=== PATIENT | male | born 1975 | race Caucasian/White ===

== ENCOUNTER → 2016-11-13 | Outpatient (CLI) | payer OTHER ==
--- NOTE | 2016-11-13 09:58 | RADRPT ---
EXAM DATE/TIME: 11/13/2016 09:33 [place] COMPARISON: No previous studies available for comparison. INDICATIONS : Right hip pain with no known injury. MEDICAL HISTORY : None. SURGICAL HISTORY : None. ENCOUNTER: Initial ACUITY: 4 - 6 months PAIN SCORE: 10/10 LOCATION: Right lateral hip. FINDINGS: A two view examination of the right hip was performed. The primary and secondary trabecular pattern of the femoral neck is intact. The hip joint is of normal width without significant sclerosis or bon y hypertrophy. The acetabulum is grossly intact. CONCLUSION: Unremarkable examination of the right hip. Thom Awan MD on November 13, 2016 at 9:56 Board Certified Radiologist. This report was verified electronically.
== END ==
LOC: HRAD 09:15
DX: M25.551 Pain in right hip (principal)
CPT/HCPCS: 73502

== ENCOUNTER → 2017-11-26 | Outpatient (CLI) | DX: M25.551 Pain in right hip (principal) ==